=== PATIENT | female | born 2000 | race Caucasian/White ===

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

== ENCOUNTER 2021-03-31 19:17 | Emergency (ER) | payer MEDICAID ==
[~2021-03-31] VITALS: Ht 160 cm; Wt 49.9 kg
[2021-03-31 19:25] VITALS: BP_SYST 122
--- NOTE | 2021-03-31 21:45 | NUR ---
Patient left without being seen.
[2021-04-01] MEDS ORDERED: IBUP-1969 PO (17:49)
[2021-04-01] MEDS ORDERED: INDO-12 PO (17:49)
== END 2021-03-31 21:45 | disposition left against medical advice (07) ==
LOC: SED 19:17
DX: M25.471 Effusion, right ankle (principal); M25.472 Effusion, left ankle; Z53.21 Procedure and treatment not carried out due to patient leaving prior to being seen by health care provider

== ENCOUNTER 2021-04-01 13:47 | Emergency (ER) | payer MEDICAID ==
[~2021-04-01] VITALS: Ht 157.5 cm; Wt 49.9 kg
[2021-04-01 14:04] VITALS: BP_SYST 133
[2021-04-01 14:49] LABS: BASOPHILS % (AUTO) 0.4 % (0.0-2.0); EOSINOPHILS % (AUTO) 0.6 % (0.0-4.0); HEMATOCRIT 37.4 % (36-48); HEMOGLOBIN 12.5 g/dL (12.0-16.0); LYMPHOCYTES # (AUTO) 1.6 K/uL (1.0-5.5); LYMPHOCYTES % (AUTO) 20.1 % (20.5-51.5); MEAN CORPUSCULAR HEMOGLOBIN 30 pg (27-31); MEAN CORPUSCULAR HGB CONC 33 % (32-36); MEAN CORPUSCULAR VOLUME 90 fL (79.0-98.0); MONOCYTES # (AUTO) 0.7 K/uL (0.0-1.0); MONOCYTES % (AUTO) 8.4 % (1.7-9.3); NEUTROPHILS # (AUTO) 5.5 K/uL (1.8-7.7); NEUTROPHILS % (AUTO) 70.5 % (40.0-70.0); PLATELET COUNT (AUTO) 194 K/uL (130-430); RED BLOOD CELL COUNT(AUTO) 4.16 MIL/uL (4.2-6.2); RED CELL DISTRIBUTION WIDTH 13.4 % (9.0-15.0); WHITE BLOOD COUNT (AUTO) 7.8 K/uL (4.8-10.8)
[2021-04-01 15:05] LABS: CALCIUM 9.3 mg/dL (8.4-11.0); CREATININE 0.74 mg/dL (0.55-1.30); POTASSIUM 4.3 mmol/L (3.5-5.1)
[2021-04-01 15:11] LABS: TOTAL BILIRUBIN 0.3 mg/dL (0.0-1.0)
[2021-04-01 15:12] LABS: ALBUMIN 3.5 g/dL (3.4-4.8); C-REACTIVE PROTEIN QUANT 0.3 mg/dL (0-0.5)
[2021-04-01 16:34] LABS: BILIRUBIN,URINE NEGATIVE (NEGATIVE); BLOOD, URINE 3+ (NEGATIVE); COLOR,URINE YELLOW (YELLOW); GLUCOSE,URINE NEGATIVE (NEGATIVE); KETONES,URINE NEGATIVE (NEGATIVE); LEUKOCYTE ESTERASE ,URINE NEGATIVE (NEGATIVE); NITRITE, URINE NEGATIVE (NEGATIVE); PH,URINE 7.5 (5.0-8.0); PROTEIN URINE NEGATIVE (NEGATIVE); UROBILINOGEN,URINE 0.2 (0.2-1.0)
[2021-04-01 17:03] LABS: CLARITY/URINE SLIGHTLY HAZY (CLEAR)
[2021-04-01 17:13] LABS: ERYTHROCYTE SEDIMENTATION RATE 14 MM/HR (0-20)
[2021-04-01 17:47] LABS: BACTERIA,URINE FEW /HPF (None Seen); MUCUS,URINE None Seen /LPF (None Seen)
[2021-04-01] MEDS ORDERED: INDO-12 PO (17:49)
[2021-04-01] MEDS ORDERED: IBUP-1969 PO (17:49)
[2021-04-01 18:01] VITALS: BP_SYST 120
== END 2021-04-01 18:01 | disposition home or self-care (01) ==
LOC: SED 13:47
DX: M19.071 Primary osteoarthritis, right ankle and foot (principal); M19.072 Primary osteoarthritis, left ankle and foot; Z79.899 Other long term (current) drug therapy
CPT/HCPCS: 36415; 80053; 81000; 81025; 85025; 85651-TC; 86140; 99283

== ENCOUNTER 2022-01-23 18:31 | Emergency (ER) | payer MEDICAID ==
[~2022-01-23] VITALS: Ht 160 cm; Wt 56.7 kg
[~2022-01-23 18:31] MED LIST: IBUP-1969 PO; INDO-12 PO
[2022-01-23 19:30] VITALS: BP_SYST 114
--- NOTE | 2022-01-23 19:37 | NUR ---
PT FROM HOME WIT C/O OF SWELLING TO THE LOWER LEFT SIDE OF FACE. PAIN RATED 6/10, WORSENS WITH TOUCH AND MOVEMENT. PT REPORTS JOYNER AND BEING LIGHTHEADED AT THIS TIME.
--- NOTE | 2022-01-23 19:40 | NUR ---
PT PLACED IN WAITING IN WAITING ROOM.
--- NOTE | 2022-01-23 19:40 | NUR ---
WITH PATIENT IN LOBBY.
[2022-01-23 20:40] LABS: BASOPHILS % (AUTO) 0.3 % (0.0-2.0); EOSINOPHILS # (AUTO) 0.1 K/uL (0.0-0.4); EOSINOPHILS % (AUTO) 1.2 % (0.0-4.0); HEMATOCRIT 34.8 % (36-48); LYMPHOCYTES # (AUTO) 1.7 K/uL (1.0-5.5); MEAN CORPUSCULAR HEMOGLOBIN 29 pg (27-31); MEAN CORPUSCULAR HGB CONC 35 % (32-36); MEAN CORPUSCULAR VOLUME 85 fL (79.0-98.0); MONOCYTES # (AUTO) 0.6 K/uL (0.0-1.0); MONOCYTES % (AUTO) 8.7 % (1.7-9.3); NEUTROPHILS # (AUTO) 4.3 K/uL (1.8-7.7); NEUTROPHILS % (AUTO) 63.8 % (40.0-70.0); PLATELET COUNT (AUTO) 259 K/uL (130-430); RED BLOOD CELL COUNT(AUTO) 4.09 MIL/uL (4.2-6.2); RED CELL DISTRIBUTION WIDTH 13.1 % (9.0-15.0); WHITE BLOOD COUNT (AUTO) 6.7 K/uL (4.8-10.8)
[2022-01-23] MEDS ORDERED: CEPH250C PO (21:30)
[2022-01-23 21:41] LABS: CALCIUM 9.1 mg/dL (8.4-11.0); CREATININE 0.79 mg/dL (0.55-1.30); POTASSIUM 4.1 mmol/L (3.5-5.1)
[2022-01-23 21:44] VITALS: BP_SYST 114
--- NOTE | 2022-01-23 21:44 | NUR ---
Patient given written and verbal discharge instructions and verbalizes understanding. ER Dr. Gentile discussed with patient the results and treatment provided. Patient in stable condition. ID arm band removed. Rx of keflex given. Patient educated on pain management and to follow up with PMD. Pain Scale 3. Opportunity for questions provided and answered. Medication side effect fact sheet provided.
[2022-01-23 21:54] LABS: ALBUMIN 3.1 g/dL (3.4-4.8); C-REACTIVE PROTEIN QUANT 4.5 mg/dL (0-0.5); TOTAL BILIRUBIN 0.1 mg/dL (0.0-1.0)
== END 2022-01-23 21:44 | disposition home or self-care (01) ==
LOC: SED 18:31
DX: I88.9 Nonspecific lymphadenitis, unspecified (principal); J02.9 Acute pharyngitis, unspecified; M54.2 Cervicalgia; R51.9 Headache, unspecified; Z79.899 Other long term (current) drug therapy
CPT/HCPCS: 36415; 80053; 83605; 84703; 85025; 86140; 99283

== ENCOUNTER 2022-01-29 14:30 | Emergency (ER) | payer MEDICAID ==
[~2022-01-29] VITALS: Ht 157.5 cm; Wt 56.7 kg
[~2022-01-29 14:30] MED LIST changes: +CEPH250C PO
[2022-01-29 14:37] VITALS: BP_SYST 121
[2022-01-29] MEDS ORDERED: ONDA-8 TL (14:38)
[2022-01-29] MEDS ORDERED: DEC4 PO (14:57)
[2022-01-29] MEDS ORDERED: NAPR-1172 PO (14:57)
== END 2022-01-29 16:50 | disposition home or self-care (01) ==
LOC: SED 14:30
DX: J02.8 Acute pharyngitis due to other specified organisms (principal); Z79.899 Other long term (current) drug therapy
CPT/HCPCS: 99283

== ENCOUNTER 2023-01-17 16:20 | Emergency (ER) | payer MEDICAID ==
[~2023-01-17] VITALS: Ht 160 cm; Wt 56.7 kg
[2023-01-17 16:20] VITALS: BP_SYST 99; PULSE 79; RESP 17; TEMP 98; O2SAT 96
[~2023-01-17 16:20] MED LIST changes: +DEC4 PO; +NAPR-1172 PO
--- NOTE | 2023-01-17 16:20 | NUR ---
Patient triaged and placed in waiting room. VSS and patient appears in no acute distress at this time. Accompanied by MOTHER, awaiting available bed, and MD notified of need for MSE.
--- NOTE | 2023-01-17 17:23 | NUR ---
BROUGHT BACK TO BED IN [facility], REPORT GIVEN TO ALANNA
--- NOTE | 2023-01-17 17:25 | NUR ---
Patient BIB friend from home. Chief Complaint: fatigue and JOYNER 7/10 s/p head injury x2d ago. Patient states tripped over dog and hit head in two locations on coffee table and floor. Right Daphne and mid Forehead. Patient reports no medical problems. Patient reports cannabis use and denies alcohol use. Patient a&ox 4 and stable.
--- NOTE | 2023-01-17 17:35 | NUR ---
ER at bedside examining patient.
[2023-01-17] MEDS ORDERED: ACET-2634 PO (17:36)
[2023-01-17] MEDS ORDERED: ONDA-8 TL (17:38)
[2023-01-17] MEDS ORDERED: ONDANSETRON 4 MG ODT TAB PO ONE (17:45)
[2023-01-17] MEDS ORDERED: ACETAMINOPHEN 500 MG TABLET PO ONE (17:45)
[2023-01-17] MEDS ORDERED: KETOROLAC TROMETHAMINE 15 MG VIAL IM ONE (17:45)
== END 2023-01-17 18:18 | disposition home or self-care (01) ==
LOC: SED 16:20
DX: S00.03XA Contusion of scalp, initial encounter (principal); R42 Dizziness and giddiness; R11.0 Nausea; F12.90 Cannabis use, unspecified, uncomplicated; Z79.899 Other long term (current) drug therapy; W22.09XA Striking against other stationary object, initial encounter; Y93.89 Activity, other specified; Y92.89 Other specified places as the place of occurrence of the external cause; Y99.8 Other external cause status
CPT/HCPCS: 99283; 96372; Q0162; J1885